=== PATIENT | male | born 1935 | race Hispanic/Latino ===

== ENCOUNTER → 2018-07-12 | Outpatient (CLI) | payer OTHER | END | disposition home or self-care (01) | LOC: OIH 15:47 | PROVIDERS: ATTEND Family Medicine | DX: M48.07 Spinal stenosis, lumbosacral region (principal); M48.02 Spinal stenosis, cervical region; M47.896 Other spondylosis, lumbar region; M47.892 Other spondylosis, cervical region | CPT/HCPCS: 72040; 72100 ==

== ENCOUNTER → 2019-03-17 | Outpatient (CLI) | payer OTHER | END | disposition home or self-care (01) | LOC: OIH 13:04 | PROVIDERS: ATTEND Family Medicine | DX: M47.812 Spondylosis without myelopathy or radiculopathy, cervical region (principal); M48.02 Spinal stenosis, cervical region | CPT/HCPCS: 72040 ==

== ENCOUNTER → 2019-03-25 | Outpatient (CLI) | payer OTHER | END | disposition home or self-care (01) | LOC: OIH 15:14 | PROVIDERS: ATTEND Family Medicine | DX: M19.041 Primary osteoarthritis, right hand (principal) | CPT/HCPCS: 73130 ==

== ENCOUNTER → 2019-12-31 | Outpatient (CLI) | payer OTHER | END | disposition home or self-care (01) | LOC: OIH 10:40 | PROVIDERS: ATTEND Family Medicine | DX: M19.012 Primary osteoarthritis, left shoulder (principal); M19.011 Primary osteoarthritis, right shoulder; J44.9 Chronic obstructive pulmonary disease, unspecified; Q25.46 Tortuous aortic arch | CPT/HCPCS: 71046; 73000 ==

== ENCOUNTER → 2021-02-21 | Outpatient (CLI) | payer OTHER ==
[~2021-02-21] MED LIST: IOHEXOL-350 50ML VIAL IV ONE
== END | disposition home or self-care (01) ==
LOC: RAH 11:23
PROVIDERS: ATTEND Family Medicine
DX: R53.1 Weakness (principal); R29.6 Repeated falls; M26.59 Other dentofacial functional abnormalities; G31.9 Degenerative disease of nervous system, unspecified; I67.2 Cerebral atherosclerosis
CPT/HCPCS: 70470; Q9967